=== PATIENT | male | born 1990 | race Caucasian/White ===

== ENCOUNTER 2017-03-22 12:50 | Emergency (ER) | payer MEDICAID ==
[2017-03-22 16:35] VITALS: BP 164/76
== END 2017-03-22 16:35 | disposition home or self-care (01) ==
LOC: ED 12:50
DX: T67.5XXA Heat exhaustion, unspecified, initial encounter (principal); T65.891A Toxic effect of other specified substances, accidental (unintentional), initial encounter; R51 Headache; X58.XXXA Exposure to other specified factors, initial encounter; Y93.89 Activity, other specified; Y92.89 Other specified places as the place of occurrence of the external cause; Y99.0 Civilian activity done for income or pay
CPT/HCPCS: 82962